=== PATIENT | female | born 1945 | race Caucasian/White ===

== ENCOUNTER 2021-02-08 11:19 | Inpatient (IN) | payer MEDICARE ==
[~2021-02-08] VITALS: Ht 157.5 cm; Wt 43.2 kg
[2021-02-08] MEDS ORDERED: SODIUM CHLORIDE 0.9% 2,500 ML IV ONE (12:15)
[2021-02-08] MEDS ORDERED: 0.9% SODIUM CHLORIDE 10 ML SYRINGE IVP PRN (12:15)
[2021-02-08 12:37] LABS: BASOPHILS % (AUTO) 0.1 % (0.0-2.0); EOSINOPHILS % (AUTO) 0.6 % (1.0-6.0); HEMATOCRIT 37.2 % (36-46); HEMOGLOBIN 12.7 g/dL (12.0-16.0); LYMPHOCYTES # (AUTO) 0.7 K/uL (1.0-4.8); LYMPHOCYTES % (AUTO) 9.4 % (22.0-44.0); MEAN CORPUSCULAR HEMOGLOBIN 29.4 pg (26.0-34.0); MEAN CORPUSCULAR HGB CONC 34.2 G/dL (31.0-37.0); MEAN CORPUSCULAR VOLUME 86 fL (80-100); MONOCYTES # (AUTO) 0.4 K/uL (0.1-1.0); MONOCYTES % (AUTO) 5.3 % (2.0-9.0); NEUTROPHILS # (AUTO) 6.7 K/uL (1.8-7.7); NEUTROPHILS % (AUTO) 84.6 % (40.0-70.0); PLATELET COUNT (AUTO) 631 K/uL (150-450); RED BLOOD CELL COUNT(AUTO) 4.33 MIL/uL (4.00-5.20); RED CELL DISTRIBUTION WIDTH 14.2 % (11.5-14.5)
[2021-02-08 12:42] LABS: COVID AG,FIA SOURCE NASOPHARYNGEAL
[2021-02-08] MEDS ORDERED: DEXTROSE 50%-WATER 25 GM/50 ML SYRINGE IVP ONE ×2 (12:45→20:15)
[2021-02-08 12:56] LABS: D-DIMER 1.83 mg/L FEU (0.00-0.50); INR 1.1 (0.9-1.1); PROTHROMBIN TIME 11.9 SEC (9.4-11.6)
[2021-02-08 12:57] LABS: LACTIC ACID 1.2 mmol/L (0.4-2.0)
[2021-02-08 13:01] LABS: ANION GAP 16 mmol/L (8-16); CARBON DIOXIDE 22 mmol/L (22-29); CHLORIDE 100 mmol/L (98-107); CREATININE 1.22 mg/dL (0.60-1.30); GLUCOSE,RANDOM 82 mg/dL (70-110); SODIUM SERUM 138 mmol/L (136-145); UREA NITROGEN, BLOOD 23 mg/dL (7-18)
[2021-02-08 13:02] LABS: CALCIUM, TOTAL 9.8 mg/dL (8.8-10.5); GLOMERULAR FILTR. RATE CALC 43 mL/min (>60)
[2021-02-08 13:10] LABS: B-TYPE NATRIURETIC PEPTIDE 22 pg/mL (0-100)
[2021-02-08 13:16] LABS: GLUCOMETER DEV NAME(LOC) ERT.5; GLUCOSE,POINT OF CARE 47 MG/DL (70-110)
[2021-02-08 13:26] LABS: ALANINE AMINOTRANSFERASE 25 U/L (12-78); ALBUMIN 2.9 g/dL (3.4-5.0); ALKALINE PHOSPHATASE 61 U/L (46-116); ASPARTATE AMINOTRANSFERASE 24 U/L (15-37); BILIRUBIN,TOTAL 0.5 mg/dL (0.1-1.0); CREATINE KINASE, TOTAL ONLY 78 U/L (26-192); TOTAL PROTEIN, SERUM 8.5 g/dL (6.4-8.2)
[2021-02-08 13:29] LABS: INFLUENZA TYPE A NEGATIVE FOR TYPE A (NEGATIVE); INFLUENZA TYPE B NEGATIVE FOR TYPE B (NEGATIVE)
[2021-02-08 14:11] LABS: GLUCOMETER DEV NAME(LOC) ERT.5; GLUCOSE,POINT OF CARE 163 MG/DL (70-110)
[2021-02-08 14:36] LABS: APPEARANCE,URINE CLEAR (CLEAR); BILIRUBIN,URINE NEGATIVE (NEGATIVE); GLUCOSE, URINE (UA) 500 mg/dL (NEGATIVE); KETONES,URINE 40 mg/dL (NEGATIVE); LEUKOCYTE ESTERASE ,URINE NEGATIVE (NEGATIVE); NITRATE,URINE NEGATIVE (NEGATIVE); OCCULT BLOOD,URINE NEGATIVE (NEGATIVE); PROTEIN,URINE NEGATIVE (NEGATIVE); UROBILINOGEN,URINE 0.2 mg/dL (<=1.0)
[2021-02-08 14:50] LABS: BACTERIA,URINE None Seen /HPF (None Seen); RBC,URINE 0-2 /HPF (0-2); URIC ACID CRYSTALS,URINE Rare /LPF (None Seen); WBC,URINE 0-2 /HPF (0-5)
[2021-02-08 14:51] LABS: SQUAMOUS EPITHELIAL CELL,UR Rare /LPF (None Seen)
[2021-02-08] MEDS ORDERED: LORazepam 2 MG/ML VIAL IVP ONE (16:30)
[2021-02-08 19:56] LABS: GLUCOMETER DEV NAME(LOC) ERT.5; GLUCOSE,POINT OF CARE 62 MG/DL (70-110)
[2021-02-08] MEDS ORDERED: MAGNESIUM HYDROXIDE SUSPENSION 30 ML UDCUP PO PRN (20:00)
[2021-02-08] MEDS ORDERED: ONDANSETRON HCL 4 MG/2 ML VIAL IVP PRN (20:00)
[2021-02-08] MEDS ORDERED: ACETAMINOPHEN 325 MG TABLET PO PRN (20:00)
[2021-02-08] MEDS ORDERED: ALBUTEROL SULFATE 2.5 MG/0.5 ML NEB SOLUTION NEB PRN (20:00)
[2021-02-08] MEDS ORDERED: HYDROCODONE/ACETAMINOPHEN 5-325 MG TABLET PO PRN (20:00)
[2021-02-08] MEDS ORDERED: BISACODYL 10 MG RECTAL RECTAL SUPPOSITORY PR PRN (20:00)
[2021-02-08] MEDS ORDERED: AmLODIPine BESYLATE 5 MG TABLET PO ONE (20:00)
[2021-02-08] MEDS ORDERED: MORPHINE SULFATE 2 MG/ML SYRINGE IVP PRN (20:00)
[2021-02-08] MEDS ORDERED: IPRATROPIUM BROMIDE 0.5 MG/2.5 ML NEB SOLUTION NEB PRN (20:00)
[2021-02-08 20:41] LABS: GLUCOMETER DEV NAME(LOC) ERT.5; GLUCOSE,POINT OF CARE 118 MG/DL (70-110)
[2021-02-08] MEDS: DEXTROSE 5%-0.45% SODIUM CHL 1,000 ML IV SCH (21:48)
[2021-02-08 22:16] LABS: GLUCOMETER DEV NAME(LOC) ERT.5; GLUCOSE,POINT OF CARE 142 MG/DL (70-110)
[2021-02-08 23:45] VITALS: BP 154/78
[2021-02-09] MEDS: HEPARIN SODIUM,PORCINE 5,000 UNITS/ML VIAL SQ SCH ×4 (00:48→23:31)
[2021-02-09 04:38] VITALS: BP 121/72
[2021-02-09 06:47] LABS: GLUCOMETER DEV NAME(LOC) 5S.1; GLUCOSE,POINT OF CARE 120 MG/DL (70-110)
[2021-02-09 06:47] LABS: GLUCOMETER DEV NAME(LOC) 5S.1; GLUCOSE,POINT OF CARE 133 MG/DL (70-110)
[2021-02-09 07:55] VITALS: BP 112/53
[2021-02-09] MEDS ORDERED: AmLODIPine BESYLATE 10 MG TABLET PO SCH (09:00)
[2021-02-09] MEDS: AmLODIPine BESYLATE 10 MG TABLET PO SCH (09:32)
[2021-02-09] MEDS: PANTOPRAZOLE SODIUM 40 MG/VIAL IVP SCH (09:33)
[2021-02-09] MEDS: DEXTROSE 5%-0.45% SODIUM CHL 1,000 ML IV SCH ×2 (09:33→23:31)
[2021-02-09 11:27] VITALS: BP 127/80
[2021-02-09 15:40] VITALS: BP 95/60
[2021-02-09 19:52] VITALS: BP 129/72
[2021-02-10 00:17] VITALS: BP 117/67
[2021-02-10] MEDS: DEXTROSE 5%-0.45% SODIUM CHL 1,000 ML IV SCH (01:20)
[2021-02-10 04:58] VITALS: BP 106/61
[2021-02-10 07:35] VITALS: BP 105/66
[2021-02-10] MEDS: PANTOPRAZOLE SODIUM 40 MG/VIAL IVP SCH (09:00)
[2021-02-10] MEDS: HEPARIN SODIUM,PORCINE 5,000 UNITS/ML VIAL SQ SCH ×2 (09:00→15:54)
[2021-02-10 12:05] VITALS: BP 140/83
[2021-02-10] MEDS: AmLODIPine BESYLATE 10 MG TABLET PO SCH (15:54)
[2021-02-10 16:50] VITALS: BP 130/62
[2021-02-10 19:31] LABS: GLUCOMETER DEV NAME(LOC) 5N.3; GLUCOSE,POINT OF CARE 122 MG/DL (70-110)
[2021-02-10 19:31] LABS: GLUCOMETER DEV NAME(LOC) 5N.3; GLUCOSE,POINT OF CARE 74 MG/DL (70-110)
[2021-02-10 19:31] LABS: GLUCOMETER DEV NAME(LOC) 5N.3; GLUCOSE,POINT OF CARE 91 MG/DL (70-110)
[2021-02-10 19:31] LABS: GLUCOMETER DEV NAME(LOC) 5N.3; GLUCOSE,POINT OF CARE 84 MG/DL (70-110)
[2021-02-10 20:20] VITALS: BP 102/50
[2021-02-11] MEDS: HEPARIN SODIUM,PORCINE 5,000 UNITS/ML VIAL SQ SCH ×3 (00:52→15:51)
[2021-02-11] MEDS: DEXTROSE 5%-0.45% SODIUM CHL 1,000 ML IV SCH ×2 (01:20→14:45)
[2021-02-11 02:41] LABS: GLUCOMETER DEV NAME(LOC) 5S.1; GLUCOSE,POINT OF CARE 116 MG/DL (70-110)
[2021-02-11 02:41] LABS: GLUCOMETER DEV NAME(LOC) 5S.1; GLUCOSE,POINT OF CARE 115 MG/DL (70-110)
[2021-02-11 04:25] VITALS: BP 133/67
[2021-02-11 07:55] VITALS: BP 125/53
[2021-02-11] MEDS: PANTOPRAZOLE SODIUM 40 MG/VIAL IVP SCH (09:46)
[2021-02-11] MEDS: AmLODIPine BESYLATE 10 MG TABLET PO SCH (09:47)
[2021-02-11 11:46] VITALS: BP 142/57
[2021-02-11 15:34] VITALS: BP 124/69
[2021-02-11 19:20] VITALS: BP 123/74
[2021-02-11] MEDS: ZOLPIDEM TARTRATE 5 MG TABLET PO PRN (20:24)
[2021-02-12] MEDS: HEPARIN SODIUM,PORCINE 5,000 UNITS/ML VIAL SQ SCH ×3 (00:17→16:55)
[2021-02-12 04:06] VITALS: BP 118/68
[2021-02-12] MEDS: DEXTROSE 5%-0.45% SODIUM CHL 1,000 ML IV SCH (04:41)
[2021-02-12 07:29] VITALS: BP 137/55
[2021-02-12] MEDS: PANTOPRAZOLE SODIUM 40 MG/VIAL IVP SCH (08:04)
[2021-02-12] MEDS: AmLODIPine BESYLATE 10 MG TABLET PO SCH (08:04)
[2021-02-12 12:23] VITALS: BP 116/60
[2021-02-12 12:34] LABS: BASOPHILS % (AUTO) 1.2 % (0.0-2.0); EOSINOPHILS % (AUTO) 1.8 % (1.0-6.0); HEMATOCRIT 31.2 % (36-46); HEMOGLOBIN 10.5 g/dL (12.0-16.0); LYMPHOCYTES # (AUTO) 1.1 K/uL (1.0-4.8); LYMPHOCYTES % (AUTO) 14.4 % (22.0-44.0); MEAN CORPUSCULAR HGB CONC 33.8 G/dL (31.0-37.0); MEAN CORPUSCULAR VOLUME 86 fL (80-100); MONOCYTES # (AUTO) 0.6 K/uL (0.1-1.0); MONOCYTES % (AUTO) 7.3 % (2.0-9.0); NEUTROPHILS # (AUTO) 5.7 K/uL (1.8-7.7); NEUTROPHILS % (AUTO) 75.3 % (40.0-70.0); PLATELET COUNT (AUTO) 504 K/uL (150-450); RED BLOOD CELL COUNT(AUTO) 3.63 MIL/uL (4.00-5.20)
[2021-02-12 12:45] LABS: ANION GAP 7 mmol/L (8-16); CALCIUM, TOTAL 8.7 mg/dL (8.8-10.5); CARBON DIOXIDE 28 mmol/L (22-29); CHLORIDE 104 mmol/L (98-107); CREATININE 0.88 mg/dL (0.60-1.30); GLUCOSE,RANDOM 96 mg/dL (70-110); POTASSIUM 4.1 mmol/L (3.5-5.1); SODIUM SERUM 139 mmol/L (136-145); UREA NITROGEN, BLOOD 16 mg/dL (7-18)
[2021-02-12 12:46] LABS: GLOMERULAR FILTR. RATE CALC > 60 mL/min (>60)
[2021-02-12 12:51] LABS: ALANINE AMINOTRANSFERASE 20 U/L (12-78); ALBUMIN 2.1 g/dL (3.4-5.0); ALKALINE PHOSPHATASE 61 U/L (46-116); ASPARTATE AMINOTRANSFERASE 19 U/L (15-37); BILIRUBIN,TOTAL 0.2 mg/dL (0.1-1.0); TOTAL PROTEIN, SERUM 6.4 g/dL (6.4-8.2)
[2021-02-12 15:25] VITALS: BP 103/56
[2021-02-12] MEDS ORDERED: AMLO-258 PO (17:46)
[2021-02-12] MEDS ORDERED: HEPA500018 SQ (17:46)
[2021-02-12] MEDS ORDERED: ACET-2247 PO (17:47)
[2021-02-12] MEDS ORDERED: BISA10SU11 PR (17:47)
[2021-02-12] MEDS ORDERED: PANT-31 PO (17:47)
[2021-02-12] MEDS ORDERED: MOM30 PO (17:48)
[2021-02-12 19:55] VITALS: BP 134/68
[2021-02-12] MEDS: ZOLPIDEM TARTRATE 5 MG TABLET PO PRN (20:12)
[2021-02-13] MEDS: HEPARIN SODIUM,PORCINE 5,000 UNITS/ML VIAL SQ SCH ×4 (00:04→23:48)
[2021-02-13 06:00] VITALS: BP 109/73
[2021-02-13 08:00] VITALS: BP 114/69
[2021-02-13] MEDS: AmLODIPine BESYLATE 10 MG TABLET PO SCH ×2 (08:48→08:57)
[2021-02-13] MEDS: PANTOPRAZOLE SODIUM 40 MG DR TABLET PO SCH (08:48)
[2021-02-13 11:28] VITALS: BP 98/54
[2021-02-13 15:12] VITALS: BP 96/49
[2021-02-13] MEDS ORDERED: SODIUM CHLORIDE 0.9% 1,000 ML IV ONE (16:45)
[2021-02-13 19:10] VITALS: BP 94/54
[2021-02-13] MEDS: ZOLPIDEM TARTRATE 5 MG TABLET PO PRN (19:28)
[2021-02-13 20:26] LABS: GLUCOMETER DEV NAME(LOC) 5S.2B; GLUCOSE,POINT OF CARE 137 MG/DL (70-110)
[2021-02-13 20:26] LABS: GLUCOMETER DEV NAME(LOC) 5S.2B; GLUCOSE,POINT OF CARE 112 MG/DL (70-110)
[2021-02-13 20:26] LABS: GLUCOMETER DEV NAME(LOC) 5S.1; GLUCOSE,POINT OF CARE 107 MG/DL (70-110)
[2021-02-14 03:30] VITALS: BP 97/56
[2021-02-14 08:00] VITALS: BP 107/53
[2021-02-14] MEDS: HEPARIN SODIUM,PORCINE 5,000 UNITS/ML VIAL SQ SCH ×2 (08:28→15:05)
[2021-02-14] MEDS: PANTOPRAZOLE SODIUM 40 MG DR TABLET PO SCH (08:28)
[2021-02-14 11:30] VITALS: BP 112/58
[2021-02-14 16:00] VITALS: BP 92/45
[2021-02-14 19:12] VITALS: BP 99/59
[2021-02-14] MEDS: ZOLPIDEM TARTRATE 5 MG TABLET PO PRN (19:25)
[2021-02-15] VITALS (8 sets, daily range): BP systolic 89–108; BP diastolic 47–61
[2021-02-15] MEDS: HEPARIN SODIUM,PORCINE 5,000 UNITS/ML VIAL SQ SCH ×3 (00:07→15:42)
[2021-02-15] MEDS: PANTOPRAZOLE SODIUM 40 MG DR TABLET PO SCH (07:56)
[2021-02-16] MEDS: HEPARIN SODIUM,PORCINE 5,000 UNITS/ML VIAL SQ SCH ×4 (00:47→23:59)
[2021-02-16 03:27] VITALS: BP 112/70
[2021-02-16 08:15] VITALS: BP 116/60
[2021-02-16 08:19] LABS: MAGNESIUM 2.1 mg/dL (1.80-2.40); PHOSPHORUS 3.9 mg/dL (2.5-4.9)
[2021-02-16] MEDS: PANTOPRAZOLE SODIUM 40 MG DR TABLET PO SCH (09:05)
[2021-02-16 12:15] VITALS: BP 110/61
[2021-02-16 17:03] VITALS: BP 112/62
[2021-02-16 19:51] VITALS: BP 105/59
[2021-02-16 23:42] VITALS: BP 95/56
[2021-02-17 04:12] VITALS: BP 137/71
[2021-02-17 07:59] VITALS: BP 92/52
[2021-02-17] MEDS: PANTOPRAZOLE SODIUM 40 MG DR TABLET PO SCH (08:54)
[2021-02-17] MEDS: HEPARIN SODIUM,PORCINE 5,000 UNITS/ML VIAL SQ SCH ×3 (08:54→23:48)
[2021-02-17 11:40] VITALS: BP 94/57
[2021-02-17 14:59] VITALS: BP 98/53
[2021-02-17 20:28] VITALS: BP 127/59
[2021-02-17 21:15] VITALS: BP 105/54
[2021-02-18 04:19] VITALS: BP 107/55
[2021-02-18 07:32] VITALS: BP 112/56
[2021-02-18] MEDS: HEPARIN SODIUM,PORCINE 5,000 UNITS/ML VIAL SQ SCH ×2 (08:35→16:43)
[2021-02-18] MEDS: PANTOPRAZOLE SODIUM 40 MG DR TABLET PO SCH (08:36)
[2021-02-18 14:55] VITALS: BP 101/58
[2021-02-18 19:38] VITALS: BP 119/67
[2021-02-19] MEDS: HEPARIN SODIUM,PORCINE 5,000 UNITS/ML VIAL SQ SCH ×4 (00:23→23:46)
[2021-02-19 04:05] VITALS: BP 99/56
[2021-02-19] MEDS: PANTOPRAZOLE SODIUM 40 MG DR TABLET PO SCH (08:19)
[2021-02-19 08:23] VITALS: BP 100/58
[2021-02-19 15:53] VITALS: BP 96/58
[2021-02-19 20:08] VITALS: BP 112/60
[2021-02-20] MEDS: ZOLPIDEM TARTRATE 5 MG TABLET PO PRN (01:47)
[2021-02-20 04:29] VITALS: BP 98/54
[2021-02-20 08:16] VITALS: BP 105/67
[2021-02-20] MEDS: PANTOPRAZOLE SODIUM 40 MG DR TABLET PO SCH (08:45)
[2021-02-20] MEDS: HEPARIN SODIUM,PORCINE 5,000 UNITS/ML VIAL SQ SCH ×3 (08:45→23:53)
[2021-02-20 15:52] VITALS: BP 115/84
[2021-02-20 20:48] VITALS: BP 102/44
[2021-02-21 03:49] VITALS: BP 95/48
[2021-02-21 07:41] VITALS: BP 95/47
[2021-02-21] MEDS: PANTOPRAZOLE SODIUM 40 MG DR TABLET PO SCH (09:08)
[2021-02-21] MEDS: HEPARIN SODIUM,PORCINE 5,000 UNITS/ML VIAL SQ SCH ×3 (09:09→23:16)
[2021-02-21 15:10] VITALS: BP 98/52
[2021-02-21 19:45] VITALS: BP 108/58
[2021-02-22 04:46] VITALS: BP 103/60
[2021-02-22 08:22] VITALS: BP 104/51
[2021-02-22] MEDS: HEPARIN SODIUM,PORCINE 5,000 UNITS/ML VIAL SQ SCH ×3 (09:05→23:34)
[2021-02-22] MEDS: PANTOPRAZOLE SODIUM 40 MG DR TABLET PO SCH (09:05)
[2021-02-22 20:14] VITALS: BP 118/67
[2021-02-23 04:45] VITALS: BP 127/61
[2021-02-23 07:37] VITALS: BP 116/60
[2021-02-23] MEDS: HEPARIN SODIUM,PORCINE 5,000 UNITS/ML VIAL SQ SCH ×3 (08:22→23:12)
[2021-02-23] MEDS: PANTOPRAZOLE SODIUM 40 MG DR TABLET PO SCH (08:22)
[2021-02-23 16:56] VITALS: BP 130/77
[2021-02-23 20:04] VITALS: BP 116/67
[2021-02-24 04:12] VITALS: BP 114/59
[2021-02-24 07:42] VITALS: BP 129/69
[2021-02-24] MEDS: PANTOPRAZOLE SODIUM 40 MG DR TABLET PO SCH (08:16)
[2021-02-24] MEDS: HEPARIN SODIUM,PORCINE 5,000 UNITS/ML VIAL SQ SCH ×2 (08:17→16:00)
[2021-02-24 16:26] VITALS: BP 122/65
== END 2021-02-24 18:45 | disposition home health service (06) | DRG 640 ==
LOC: EMS 11:21 → 5N 21:46 → EDBD 21:46 → EMS 23:04 → 6N 02-17 20:40 → 6S 02-21 11:38
PROVIDERS: ADMIT Hospitalist; ATTEND Hospitalist
DX: E16.2 Hypoglycemia, unspecified (principal); G93.41 Metabolic encephalopathy; U07.1 COVID-19; E43 Unspecified severe protein-calorie malnutrition; Z68.1 Body mass index [BMI] 19.9 or less, adult; R26.81 Unsteadiness on feet; D75.839 Thrombocytosis, unspecified; I10 Essential (primary) hypertension; Z78.1 Physical restraint status
CPT/HCPCS: 51702; 70450; 71045; 80053; 81001; 82550; 82947; 82962; 83605; 83735; 83880; 84100; 84145; 84484; 85025; 85379; 85610; 85730; 87040; 87804; 92610; 93005; 93880; 97110; 97116; 97162; 97166; 97530; 97535; 99291; C9113; J1644; J2060; J2270; J2405; J7030; 36415-L1; 36415-TC; U0003

== ENCOUNTER 2022-01-17 14:05 | Emergency (ER) | payer MEDICARE ==
[~2022-01-17] VITALS: Ht 160 cm; Wt 40.7 kg
[~2022-01-17 14:05] MED LIST: ACET-2247 PO; BISA10SU11 PR; HEPA500018 SQ; MAGN-169 PO; PANT-31 PO
[2022-01-17] MEDS ORDERED: ACETAMINOPHEN 650 MG/ISO-OSM 65 ML IV ONE (14:30)
[2022-01-17 15:29] LABS: BASOPHILS % (AUTO) 0.1 % (0.0-2.0); EOSINOPHILS % (AUTO) 0.5 % (1.0-6.0); HEMATOCRIT 30.6 % (36-46); HEMOGLOBIN 10.2 g/dL (12.0-16.0); LYMPHOCYTES # (AUTO) 0.6 K/uL (1.0-4.8); LYMPHOCYTES % (AUTO) 7.7 % (22.0-44.0); MEAN CORPUSCULAR HEMOGLOBIN 29.7 pg (26.0-34.0); MEAN CORPUSCULAR HGB CONC 33.3 G/dL (31.0-37.0); MEAN CORPUSCULAR VOLUME 89 fL (80-100); MONOCYTES # (AUTO) 0.3 K/uL (0.1-1.0); MONOCYTES % (AUTO) 4.3 % (2.0-9.0); NEUTROPHILS # (AUTO) 6.5 K/uL (1.8-7.7); PLATELET COUNT (AUTO) 251 K/uL (150-450); RED BLOOD CELL COUNT(AUTO) 3.43 MIL/uL (4.00-5.20); RED CELL DISTRIBUTION WIDTH 15.6 % (11.5-14.5)
[2022-01-17 15:31] LABS: NEUTROPHILS % (AUTO) 87.4 % (40.0-70.0)
[2022-01-17 15:39] LABS: CALCIUM, TOTAL 8.9 mg/dL (8.8-10.5); CREATININE 1.13 mg/dL (0.60-1.30); POTASSIUM 3.3 mmol/L (3.5-5.1)
[2022-01-17 15:46] LABS: ALBUMIN 2.2 g/dL (3.4-5.0); BILIRUBIN,TOTAL 0.2 mg/dL (0.1-1.0); TOTAL PROTEIN, SERUM 6.6 g/dL (6.4-8.2)
[2022-01-17 15:46] LABS: COVID AG,FIA SOURCE NASAL SWAB
[2022-01-17 16:23] LABS: INFLUENZA TYPE A NEGATIVE FOR TYPE A (NEGATIVE); INFLUENZA TYPE B NEGATIVE FOR TYPE B (NEGATIVE)
[2022-01-17] MEDS ORDERED: SODIUM CHLORIDE 0.9% 100 ML ONE (16:35)
[2022-01-17] MEDS ORDERED: IOHEXOL 350 MG/ML 100 ML VIAL ONE (16:35)
[2022-01-17] MEDS ORDERED: ACETAMINOPHEN 325 MG TABLET PO PRN ×2 (23:00→23:15)
[2022-01-17] MEDS ORDERED: 0.9% SODIUM CHLORIDE 10 ML SYRINGE IVP PRN (23:00)
[2022-01-17] MEDS ORDERED: POTASSIUM CHLORIDE 20 MEQ ER TABLET PO ONE (23:00)
[2022-01-17] MEDS ORDERED: AZITHROMYCIN 500 MG/NS 250 ML IV ONE (23:00)
[2022-01-17] MEDS ORDERED: CefTRIAXone 1 GM/DEXTROSE 50 ML IV ONE (23:00)
[2022-01-17] MEDS ORDERED: ONDANSETRON HCL 4 MG/2 ML VIAL IVP PRN ×2 (23:00→23:15)
[2022-01-17] MEDS ORDERED: BISACODYL 10 MG RECTAL RECTAL SUPPOSITORY PR PRN (23:15)
[2022-01-17] MEDS ORDERED: HYDROCODONE/ACETAMINOPHEN 5-325 MG TABLET PO PRN (23:15)
[2022-01-17] MEDS ORDERED: MORPHINE SULFATE 2 MG/ML SYRINGE IVP PRN (23:15)
[2022-01-17] MEDS ORDERED: ZOLPIDEM TARTRATE 5 MG TABLET PO PRN (23:15)
[2022-01-17] MEDS ORDERED: MAGNESIUM HYDROXIDE SUSPENSION 30 ML UDCUP PO PRN (23:15)
[2022-01-18 06:11] LABS: APPEARANCE,URINE CLEAR (CLEAR); BILIRUBIN,URINE NEGATIVE (NEGATIVE); GLUCOSE, URINE (UA) NEGATIVE (NEGATIVE); KETONES,URINE NEGATIVE (NEGATIVE); LEUKOCYTE ESTERASE ,URINE MODERATE (NEGATIVE); NITRATE,URINE NEGATIVE (NEGATIVE); OCCULT BLOOD,URINE TRACE (NEGATIVE); PROTEIN,URINE 30-70 mg/dL (NEGATIVE); SPECIFIC GRAVITIY, URINE 1.046 (1.003-1.030)
[2022-01-18 06:17] LABS: RBC,URINE 0-2 /HPF (0-2)
[2022-01-18 06:18] LABS: BACTERIA,URINE Rare /HPF (None Seen)
[2022-01-18 06:55] LABS: BASOPHILS % (AUTO) 0.1 % (0.0-2.0); EOSINOPHILS % (AUTO) 0.1 % (1.0-6.0); HEMATOCRIT 31.2 % (36-46); HEMOGLOBIN 10.4 g/dL (12.0-16.0); LYMPHOCYTES # (AUTO) 0.5 K/uL (1.0-4.8); LYMPHOCYTES % (AUTO) 5.8 % (22.0-44.0); MEAN CORPUSCULAR HEMOGLOBIN 29.9 pg (26.0-34.0); MEAN CORPUSCULAR HGB CONC 33.3 G/dL (31.0-37.0); MEAN CORPUSCULAR VOLUME 90 fL (80-100); MONOCYTES # (AUTO) 0.5 K/uL (0.1-1.0); MONOCYTES % (AUTO) 5.9 % (2.0-9.0); NEUTROPHILS # (AUTO) 8.1 K/uL (1.8-7.7); PLATELET COUNT (AUTO) 306 K/uL (150-450); RED BLOOD CELL COUNT(AUTO) 3.48 MIL/uL (4.00-5.20); RED CELL DISTRIBUTION WIDTH 15.6 % (11.5-14.5)
[2022-01-18 07:09] LABS: NEUTROPHILS % (AUTO) 88.1 % (40.0-70.0)
[2022-01-18 07:12] LABS: ALBUMIN 2.2 g/dL (3.4-5.0); BILIRUBIN,TOTAL 0.2 mg/dL (0.1-1.0); CALCIUM, TOTAL 8.7 mg/dL (8.8-10.5); CREATININE 1.03 mg/dL (0.60-1.30); POTASSIUM 3.7 mmol/L (3.5-5.1); TOTAL PROTEIN, SERUM 6.6 g/dL (6.4-8.2)
[2022-01-18] MEDS: HEPARIN SODIUM,PORCINE 5,000 UNITS/ML VIAL SQ SCH ×2 (08:05)
[2022-01-18] MEDS ORDERED: PANTOPRAZOLE SODIUM 40 MG DR TABLET PO SCH (09:00)
[2022-01-18] MEDS ORDERED: DOCUSATE SODIUM 100 MG CAPSULE PO SCH (09:00)
[2022-01-18 14:15] VITALS: BP 142/80
== END 2022-01-18 14:45 | disposition short-term general hospital (02) ==
LOC: EMS 14:11
DX: R62.7 Adult failure to thrive (principal); J18.9 Pneumonia, unspecified organism; Z73.6 Limitation of activities due to disability; Z20.822 Contact with and (suspected) exposure to COVID-19
CPT/HCPCS: 99285; 96365; 71275; 71045; 96367; 87426; 81001; 82550; 83880; 84484; 85025; 85379; 87040; 87804; 36415; 87086; 87186; 93005; 96368; 96372; 80053; J0456; J0696; Q9967; J7050; J0131; J1644